=== PATIENT | female | born 1990 | race Caucasian/White ===

== ENCOUNTER 2019-06-18 12:13 | Emergency (ER) | payer OTHER ==
[~2019-06-18] VITALS: Ht 167.6 cm; Wt 85.7 kg
[2019-06-18 12:45] LABS: URINE BILIRUBIN NEGATIVE (Negative); URINE BLOOD 1+ (Negative); URINE CLARITY SL CLOUDY; URINE COLOR YELLOW; URINE GLUCOSE-RANDOM* NEGATIVE (Negative); URINE KETONES NEGATIVE (Negative); URINE NITRITE-REFLEX NEGATIVE (Negative); URINE PROTEIN (DIPSTICK) NEGATIVE (Negative); URINE SPECIFIC GRAVITY >= 1.030 (1.005-1.035); URINE UROBILINOGEN 0.2 E.U./dl (0.2-1.0)
[2019-06-18 12:46] LABS: URINE LEUKOCYTES-REFLEX 1+ (Negative)
[2019-06-18 12:53] LABS: SQUAMOUS >10 Many /LPF (0-3)
[2019-06-18 12:54] LABS: AMORPHOUS URATES Few /LPF (None Seen); CASTS None Seen /LPF (None Seen); URINE RBC 3-10 Few /HPF (0-2); URINE WBC-REFLEX 0-5 Rare /HPF (0-5)
[2019-06-18 12:59] LABS: AMP/METHAMP Negative (Negative); BARBITURATES Negative (Negative); BENZODIAZEPINES Negative (Negative); COCAINE Negative (Negative); METHADONE Negative (Negative); OPIATES Negative (Negative); PCP Negative (Negative)
[2019-06-18 13:18] LABS: ABSOLUTE NEUTROPHILS 5.1 thou/uL (1.4-8.2); BASOPHILS 0.6 % (0.0-2.0); EOSINOPHILS 2.6 % (0.0-3.0); HEMATOCRIT 44.4 % (37.0-47.0); HEMOGLOBIN 15.7 gm/dL (12.0-15.0); LYMPHOCYTES 32.5 % (24.0-44.0); MCH 33.8 pg (26.0-34.0); MCHC 35.4 g/dL (28.0-37.0); MCV 95.7 fL (80.0-100.0); MONOCYTES 8.4 % (1.0-8.0); PLATELET COUNT 198 thou/uL (150-400); POLYS 55.9 % (36.0-66.0); RBC 4.64 mil/uL (4.20-5.00); RDW 12.2 % (10.5-14.5); WBC 9.2 thou/uL (4.0-11.0)
[2019-06-18 13:27] LABS: CALCIUM 9.3 mg/dL (8.5-10.1); CREATININE 1.1 mg/dL (0.6-1.0); POTASSIUM 3.6 mmol/L (3.5-5.1)
[2019-06-18] MEDS ORDERED: KEFLEX500 M1 PO (13:53)
[2019-06-18] MEDS ORDERED: HYDROXYZINE HCL25 M2 PO (13:53)
[2019-06-18 14:16] VITALS: BP 129/70
--- NOTE | 2019-06-19 15:09 | EKG ---
[address] [address] ELECTROCARDIOGRAM REPORT Name: EMBER YEN Room [facility]: [id number] Admission: 06/18/19 Attend Phys: Discharge: 06/18/19 Date of : 89 Report #: [id number] THIS REPORT FOR: //name// [facility] ED Test Date: 2019-06-18 Test Time: 12:17:36 Pat Name: EMBER YEN Department: Room: Gender: F [employer]: GERARD : 1990 Requested By: Abbie Gonzalez Order Number: [id number] MD: Morgan Fernández Measurements Intervals [place] Rate: 147 P: 79 TN: 119 QRS: 79 QRSD: 90 T: 14 QT: 297 QTc: 465 Interpretive Statements Sinus tachycardia No previous ECG available for comparison Electronically Signed On 06-19-2019 15:09:17 CDT by Morgan Fernández [email or web address] <ELECTRONICALLY SIGNED> By: Morgan Fernández MD 06/19/19 1509 1217 1217 Morgan Fernández MD /JUANJO
== END 2019-06-18 14:23 | disposition home or self-care (01) ==
LOC: ER 12:13
PROVIDERS: Nurse Practitioner Family
DX: F41.0 Panic disorder [episodic paroxysmal anxiety] (principal); N39.0 Urinary tract infection, site not specified; J45.909 Unspecified asthma, uncomplicated; F41.9 Anxiety disorder, unspecified; Z98.890 Other specified postprocedural states; Z91.040 Latex allergy status